=== PATIENT | male | born 1980 | race African-American/Black ===

== ENCOUNTER 2024-05-12 22:25 | Emergency (ER) | payer SELFPAY ==
[~2024-05-12] VITALS: Ht 188 cm; Wt 109.0 kg
[2024-05-12 22:46] VITALS: O2SAT 98
[2024-05-12] MEDS ORDERED: DOXY100C5 MT (23:05)
[2024-05-12 23:14] LABS: CLARITY URINE CLEAR (CLEAR); COLOR URINE YELLOW (YELLOW); GLUCOSE URINE NEGATIVE (NEGATIVE); KETONES URINE NEGATIVE (NEGATIVE); LEUKOCYTE ESTERASE URINE NEGATIVE (NEGATIVE); NITRITE URINE NEGATIVE (NEGATIVE); OCCULT BLOOD URINE NEGATIVE (NEGATIVE); PROTEIN URINE 1+ (NEGATIVE); SPECIFIC GRAVITY URINE 1.033 (1.005-1.030)
[2024-05-12] MEDS: CEFTRIAXONE SODIUM 500MG VIAL IM ONE (23:30)
[2024-05-12 23:36] VITALS: BP 114/70; PULSE 75; RESP 16; TEMP 37.05852; O2SAT 98
[2024-05-13 02:53] LABS: WBC URINE 0-2 /hpf (0-2)
[2024-05-13 02:54] LABS: BACTERIA URINE NONE SEEN; RBC URINE 0-2 /hpf (0-2); SQUAMOUS EPITHELIAL CELL URINE NONE SEEN /lpf (RARE/1+)
== END 2024-05-12 23:37 | disposition home or self-care (01) ==
LOC: ER 22:25
DX: Z71.1 Person with feared health complaint in whom no diagnosis is made (principal); I10 Essential (primary) hypertension
CPT/HCPCS: 99283; 81003; 96372; J0696